=== PATIENT | male | born 1960 | race Caucasian/White ===

== ENCOUNTER 2022-05-31 16:28 | Inpatient (IN) ==
[2022-05-31 16:37] VITALS: TEMP 98.2
[2022-05-31] MEDS ORDERED: Cefepime HCl 2,000 MG in 0.9 % Sodium Chloride 10 ML IVP ONE (16:44)
[2022-05-31] MEDS ORDERED: Iopamidol - 370 500 ML MLS IVP ONE (16:44)
[2022-05-31] MEDS ORDERED: Ipratropium/Albuterol Neb 3 ML IH ONE (16:49)
[2022-05-31 17:09] LABS: ABG Base Excess -11 mEq/L (-2 to 3); ABG HCO3 11 mEq/L (21-27); ABG Oxygen Saturation 88 % (95-98); ABG PCO2 18 mmHg (35-45); ABG PH 7.41 pH Units (7.32-7.45); ABG PO2 51 mmHg (85-104); ABG TCO2 12 mEq/L (20-26)
[2022-05-31 17:40] LABS: Hematocrit 36.4 % (37.5-50.1); Mean Corpuscular HGB Conc 35.7 g/dL (31.6-35.5); Mean Corpuscular Hemoglobin 32.3 pg (28.0-33.3); Mean Corpuscular Volume 90.5 fL (83.0-100.0); Mean Platelet Volume 10.6 fL (9.4-12.4); Platelet Count 225 K/mcL (140-400); Red Blood Count 4.02 M/mcL (4.19-5.50); Red Cell Distribution Width 12.3 % (11.5-14.5); White Blood Count 7.5 K/mcL (4.3-11.1)
[2022-05-31] MEDS: 0.9 % Sodium Chloride 1,000 ML IVC SCH ×2 (17:43→20:16)
[2022-05-31 17:47] LABS: INR 1.6; Prothrombin Time 17.9 Seconds (9.4-12.1)
[2022-05-31 17:49] LABS: Activated Partial Thrombo Time 32.9 Seconds (26.0-36.0)
[2022-05-31 17:59] LABS: Lymphocytes # 1.1 K/mcL (0.6-4.6); Monocytes # 0.5 K/mcL (0.0-1.3)
[2022-05-31 18:28] LABS: Albumin/Globulin Ratio 0.7 (1.1-2.2); Bilirubin,Direct 0.5 mg/dL (0.0-0.2); Bilirubin,Indirect 0.8 mg/dL (0.0-1.0); Bilirubin,Total 1.3 mg/dL (0.3-1.0); Calcium 9.3 mg/dL (8.6-10.3); Globulin 4.2 g/dL (2.4-3.5); Magnesium 3.1 mg/dL (1.6-2.6); Phosphorous 14.5 mg/dL (2.7-4.5); Potassium 4.7 mEq/L (3.5-5.1); Total Protein 7.2 g/dL (6.4-8.9); Troponin I 0.04 ng/mL (< 0.04)
[2022-05-31 18:42] LABS: Adenovirus Not Detected (Not Detect); Bordetella Pertussis Not Detected (Not Detect); Chlamydophila pneumoniae Not Detected (Not Detect); Coronavirus 229E Not Detected (Not Detect); Coronavirus HKU1 Not Detected (Not Detect); Coronavirus NL63 Not Detected (Not Detect); Coronavirus OC43 Not Detected (Not Detect); Human Metapneumovirus Not Detected (Not Detect); Human Rhinovirus/Enterovirus Not Detected (Not Detect); Influenza A Subtype 2009 H1 Not Detected (Not Detect); Influenza B Not Detected (Not Detect); Mycoplasma pneumoniae Not Detected (Not Detect); Parainfluenza Virus 1 Not Detected (Not Detect); Parainfluenza Virus 2 Not Detected (Not Detect); Parainfluenza Virus 3 Not Detected (Not Detect); Parainfluenza Virus 4 Not Detected (Not Detect); Respiratory Syncytial Virus Not Detected (Not Detect); SARS-CoV-2 Not Detected (Not Detect)
[2022-05-31] MEDS ORDERED: 0.9 % Sodium Chloride 1,000 ML IVC ONE (18:45)
[2022-05-31] MEDS ORDERED: Aspirin 325 MG TABLET PO ONE (18:52)
[2022-05-31] MEDS ORDERED: Norepinephrine 4 MG/254 ML IV.SOLN IVC SCH (22:00)
[2022-05-31] MEDS ORDERED: *HR* Heparin 5,000 UNIT/ML VIAL IVP ONE (22:17)
[2022-05-31] MEDS ORDERED: Phenylephrine 20 MG in 0.9 % Sodium Chloride 250 ML IVC SCH (22:30)
[2022-05-31] MEDS ORDERED: Heparin 25,000UNIT/250ML 1/2NS 25,000 UNIT/250 ML IV.SOLN IVC SCH (22:30)
[2022-05-31] MEDS ORDERED: Naloxone 0.4 MG/ML INJ IVP PRN (22:50)
[2022-05-31 23:03] LABS: Heparin anti-factor XA UFH 0.04 IU/mL (0.30-0.70)
[2022-05-31 23:04] LABS: INR 1.6; Prothrombin Time 17.5 Seconds (9.4-12.1)
[2022-05-31] MEDS ORDERED: Ringers Solution, Lactated 1,000 ML IVC ONE (23:10)
[2022-06-01 00:13] LABS: ABG Base Excess -13 mEq/L (-2 to 3); ABG HCO3 16 mEq/L (21-27); ABG Oxygen Saturation 93 % (95-98); ABG PCO2 45 mmHg (35-45); ABG PH 7.15 pH Units (7.32-7.45); ABG PO2 86 mmHg (85-104); ABG TCO2 17 mEq/L (20-26); Blood Gas Modality BiLevel
[2022-06-01] MEDS ORDERED: Lidocaine Drip 2 GM/250 ML IV.SOLN IVC ONE (00:53)
[2022-06-01 02:53] VITALS: BP 102/61; PULSE 147
[2022-06-01 04:06] VITALS: O2SAT 89
[2022-06-01 13:29] LABS: A.calcoaceticus-baumannii cplx Not Detected (Not Detect); Bacteroides fragilis by PCR Not Detected (Not Detect); Candida albicans by PCR Not Detected (Not Detect); Candida auris by PCR Not Detected (Not Detect); Candida glabrata by PCR Not Detected (Not Detect); Candida krusei by PCR Not Detected (Not Detect); Candida parapsilosis by PCR Not Detected (Not Detect); Candida tropicalis by PCR Not Detected (Not Detect); Crypto. neoformans/gattii PCR Not Detected (Not Detect); Enterobacter cloacae Cmplx PCR Not Detected (Not Detect); Enterobacterales by PCR Not Detected (Not Detect); Enterococcus faecalis by PCR Not Detected (Not Detect); Enterococcus faecium by PCR Not Detected (Not Detect); Escherichia coli by PCR Not Detected (Not Detect); Klebs. pneumoniae group by PCR Not Detected (Not Detect); Klebsiella aerogenes by PCR Not Detected (Not Detect); Klebsiella oxytoca by PCR Not Detected (Not Detect); Proteus by PCR Not Detected (Not Detect); Pseudomonas aeruginosa by PCR Not Detected (Not Detect); Salmonella species by PCR Not Detected (Not Detect); Serratia marcescens by PCR Not Detected (Not Detect); Staph epidermidis by PCR Not Detected (Not Detect); Staph lugdunensis by PCR Not Detected (Not Detect); Staphylococcus aureus by PCR Not Detected (Not Detect); Staphylococcus by PCR Not Detected (Not Detect); Stenotrophomonas maltophilia Not Detected (Not Detect); Streptococcus agalactiae(B)PCR Not Detected (Not Detect); Streptococcus pneumoniae PCR DETECTED (Not Detect); Streptococcus pyogenes (A) PCR Not Detected (Not Detect)
== END 2022-06-01 03:43 | disposition expired | DRG 871 ==
LOC: ICNU 16:28 → EMEROOARM 16:28 → ICNU 23:40
PROVIDERS: ADMIT Internal Medicine; ATTEND Internal Medicine